=== PATIENT | male | born 1965 | race Caucasian/White ===

== ENCOUNTER 2018-03-20 16:23 | Observation (INO) | payer OTHER ==
[2018-03-20] MEDS ORDERED: ONDANSETRON 4 MG/2 ML VIAL IVP ONE (16:48)
[2018-03-20] MEDS ORDERED: fentaNYL 100 MCG/2 ML INJ IVP ONE (16:48)
[2018-03-20] MEDS ORDERED: NS 1,000 ML IV ONE ×2 (16:48→18:29)
--- NOTE | 2018-03-20 16:51 | EDPHY ---
H & P Stated Complaint: kidney stones Time Seen by Provider: 03/20/18 16:39 HPI/ROS: CHIEF COMPLAINT: Right flank pain, vomiting HISTORY OF PRESENT ILLNESS: 52-year-old male with history of kidney stones presents with right flank pain and vomiting. Onset of moderate right flank pain yesterday. The pain waxes and waning and currently is severe, 9/10. Associated with multiple episodes of vomiting and inability to tolerate oral fluids. Gross hematuria started yesterday evening, now with urinary hesitancy and dribbling urination. Chills last evening, no known fever. REVIEW OF SYSTEMS: complete 10 point ROS reviewed and is negative except for the noted elements in the HPI - Personal History Current Tetanus/Diphtheria Vaccine: Yes - Medical/Surgical History Hx Asthma: No Hx Chronic Respiratory Disease: No Hx Diabetes: No Hx Cardiac Disease: No Hx Renal Disease: No Hx Cirrhosis: No Hx Alcoholism: No Other PMH: kidney stones, CAD, diabetes, hypertension, hyperlipidemia - Social History Smoking Status: Never smoked Alcohol Use: Sober Drug Use: None Additional Social History: [place] - Physical Exam Exam: General Appearance: Alert, pleasant Eyes: Pupils equal and round, no conjunctival pallor ENT, Mouth: Mucous membranes moist Neck: Normal inspection Respiratory: Lungs are clear to auscultation Cardiovascular: Regular rate and rhythm Gastrointestinal: Abdomen is soft and nontender Back: No CVA tenderness Neurological: A&O, nonfocal, normal gait Skin: Warm and dry Extremities: Normal inspection Psychiatric: Mood and affect normal Constitutional: Initial Vital Signs Temperature (C) 37.1 C 03/20/18 16:31 Heart Rate 84 03/20/18 16:31 Respiratory Rate 18 03/20/18 16:31 Blood Pressure 98/60 L 03/20/18 16:31 O2 Sat (%) 92 03/20/18 16:31 O2 Delivery Mode Room Air Allergies/Adverse Reactions: Cephalosporins Allergy (Verified 03/20/18 16:35) iodine Allergy (Verified 03/20/18 16:35) Medical Decision Making - Diagnostics Imaging Results: Imaging Impressions Abdomen/Pelvis CT 03/20/18 16:48 Impression: 1. Bilateral nephrolithiasis. 2. Dominant partially obstructive calculus right renal pelvis measuring 12 x 7 x 15 mm as well as partially obstructing calculus distal right ureter at the level of the SI joints measuring 4 mm. 3. Fibrotic band or band of consolidation right lower lobe. 4. Cirrhosis suspected with prominence of the left lobe liver. 5. Moderate splenomegaly. 6. Degenerative disk disease mid to lower lumbar spine with spinal and neuroforaminal stenoses. Findings discussed with Ml Reno M.D. at 17:49 hour, 03/20/2018. Attention: This CT examination is specifically designed to evaluate patients who are clinically suspected of having acute obstructive uropathy. This examination does not use radiographic contrast, and as such, provides only a limited evaluation of the abdomen, pelvis and retroperitoneum. If there is further clinical suspicion for pathological conditions other than obstructive uropathy, a complete CT evaluation of the abdomen and pelvis utilizing intravenous, oral, and rectal contrast should be considered. Imaging: Discussed imaging studies w/ scallop raker Radiologist ED Course/Re-evaluation: This patient presents with severe right flank pain, consistent with renal colic. Bladder scan: No urine in the urinary bladder. An IV was established and IV normal saline 1 L, fentanyl 100 mcg and Zofran IV given. CT scan results discussed with the patient. He is currently feeling much better. Toradol 15 mg IV given. Urinalysis still pending. 7:30 p.m.-urinalysis reveals UTI. The patient is nontoxic-appearing and does not meet SIRS criteria. Urine/blood cultures sent and Levaquin 750 mg IV given. Hospitalist service was consulted for admission. Dr. Ambriz was consulted and requests IR nephrostomy tube. d/w Dr. Levi, who reviewed the CT scan; no indication for nephrostomy tube this evening, will reassess the patient in the morning. - Data Points Laboratory Results: Laboratory Results 03/20/18 17:00 03/20/18 17:00 03/20/18 03/20/18 03/20/18 18:40 17:00 17:00 WBC 9.82 10^3/uL H 10^3/uL (3.80-9.50) RBC 4.27 10^6/uL L 10^6/uL (4.40-6.38) Hgb 13.6 g/dL L g/dL (13.7-17.5) Hct 38.4 % L % (40.0-51.0) MCV 89.9 fL fL (81.5-99.8) MCH 31.9 pg pg (27.9-34.1) MCHC 35.4 g/dL g/dL (32.4-36.7) RDW 13.2 % % (11.5-15.2) Plt Count 62 10^3/uL L 10^3/uL (150-400) MPV 11.6 fL fL (8.7-11.7) Neut % (Auto) 89.6 % H % (39.3-74.2) Lymph % (Auto) 4.4 % L % (15.0-45.0) [place] % (Auto) 5.5 % % (4.5-13.0) Eos % (Auto) 0.0 % L % (0.6-7.6) Baso % (Auto) 0.2 % L % (0.3-1.7) Nucleat RBC Rel Count 0.0 % % (0.0-0.2) Absolute Neuts (auto) 8.80 10^3/uL H 10^3/uL (1.70-6.50) Absolute Lymphs (auto) 0.43 10^3/uL L 10^3/uL (1.00-3.00) Absolute Monos (auto) 0.54 10^3/uL 10^3/uL (0.30-0.80) Absolute Eos (auto) 0.00 10^3/uL L 10^3/uL (0.03-0.40) Absolute Basos (auto) 0.02 10^3/uL 10^3/uL (0.02-0.10) Absolute Nucleated RBC 0.00 10^3/uL 10^3/uL (0-0.01) Immature Gran % 0.3 % % (0.0-1.1) Immature Gran # 0.03 10^3/uL 10^3/uL (0.00-0.10) RBC/WBC/PLT Morphology TNP Platelet Estimate TNP Sodium 131 mEq/L L mEq/L (135-145) Potassium 4.0 mEq/L mEq/L (3.5-5.2) Chloride 100 mEq/L mEq/L (97-110) Carbon Dioxide 23 mEq/l mEq/l (22-31) Anion Gap 8 mEq/L mEq/L (6-14) BUN 30 mg/dL H mg/dL (7-23) Creatinine 0.8 mg/dL mg/dL (0.7-1.3) Estimated GFR > 60 Glucose 262 mg/dL H mg/dL (70-100) Calcium 8.2 mg/dL L mg/dL (8.5-10.4) Urine Color LATANYA Urine Appearance MODERATELY TURBID Urine pH 5.0 (5.0-7.5) Ur Specific [place] 1.026 (1.002-1.030) Urine Protein 2+ H (NEGATIVE) Urine Ketones NEGATIVE (NEGATIVE) Urine Blood 3+ H (NEGATIVE) Urine Nitrate NEGATIVE (NEGATIVE) Urine Bilirubin NEGATIVE (NEGATIVE) Urine Urobilinogen NEGATIVE EU EU (0.2-1.0) Ur Leukocyte Esterase 1+ H (NEGATIVE) Urine RBC 50-182 /hpf H /hpf (0-3) Urine WBC 50-182 /hpf H /hpf (0-3) Ur Epithelial Cells TRACE /lpf /lpf (NONE-1+) Urine Mucus 3+ /lpf H /lpf (NONE-1+) Urine Glucose 1+ H (NEGATIVE) Medications Given: Levofloxacin/Dextrose (Levaquin 750 Mg (Premix)) 150 mls @ 100 mls/hr IV EDNOW ONE PRN Reason: Protocol Stop: 03/20/18 20:54 Last Admin: 03/20/18 19:35 Dose: 150 mls Discontinued Medications Fentanyl (Sublimaze) 100 mcg IVP EDNOW ONE Stop: 03/20/18 16:49 Last Admin: 03/20/18 17:07 Dose: 100 mcg Sodium Chloride (Ns) 1,000 mls @ 0 mls/hr IV EDNOW ONE; Wide Open PRN Reason: Protocol Stop: 03/20/18 16:49 Last Admin: 03/20/18 17:07 Dose: 1,000 mls Sodium Chloride (Ns) 1,000 mls @ 0 mls/hr IV ONCE ONE; Wide Open PRN Reason: Protocol Stop: 03/20/18 18:30 Last Admin: 03/20/18 18:40 Dose: 1,000 mls Ketorolac Tromethamine (Toradol) 15 mg IVP EDNOW ONE Stop: 03/20/18 18:24 Last Admin: 03/20/18 18:39 Dose: 15 mg Ondansetron HCl (Zofran) 4 mg IVP EDNOW ONE Stop: 03/20/18 16:49 Last Admin: 03/20/18 17:07 Dose: 4 mg Ondansetron HCl (Zofran Odt 4 Mg Prepack#2) 1 btl TAKEHOME EDNOW ONE Stop: 03/20/18 18:31 Last Admin: 03/20/18 18:39 Dose: 1 btl Oxycodone/Acetaminophen (Percocet 5/325mg Prepack#4) 1 btl TAKEHOME EDNOW ONE Stop: 03/20/18 18:31 Last Admin: 03/20/18 18:39 Dose: 1 btl Departure - Departure Disposition: Home, Routine, Self-Care Clinical Impression: Ureteral calculus, right Urinary tract infection Qualifiers: Urinary tract infection type: acute cystitis Hematuria presence: with hematuria Qualified Code(s): N30.01 - Acute cystitis with hematuria Condition: Fair
[2018-03-20 17:28] LABS: PLATELET COUNT 62 10^3/uL (150-400)
[2018-03-20] MEDS ORDERED: KETOROLAC 15 MG/1 ML SDV IVP ONE (18:23)
[2018-03-20] MEDS: OXYCODONE/APAP 5/325MG PREPACK#4 BTL TAKEHOME ONE ×2 (18:39→21:11)
[2018-03-20] MEDS: ONDANSETRON 4MG PREPACK#2 BTL TAKEHOME ONE ×2 (18:39→21:11)
[2018-03-20] MEDS ORDERED: ACETAMINOPHEN 325 MG TAB PO PRN (19:45)
[2018-03-20] MEDS ORDERED: HYDROmorphONE/DILAUDID 1 MG/ML INJ IVP PRN (19:45)
[2018-03-20] MEDS ORDERED: ONDANSETRON 4 MG/2 ML VIAL IVP PRN (19:45)
[2018-03-20] MEDS ORDERED: ONDANSETRON DISINTEGRATING 4 MG TAB PO PRN (19:45)
--- NOTE | 2018-03-20 21:03 | PDGENHP ---
History and Physical - Chief Complaint R Flank Pain, vomiting, Hematuria - History of Present Illness Jose D Short is a 52 yo M with a PMHx of CAD, DM, HTN, HLD, Nephrolithiasis who presents to [facility] for R flank pain, vomiting, and hematuria. He reports that symptoms were acute onset yesterday evening. Pain was located in R flank, 7/10 , with no radiation, sharp in quality, worse with movement. He then started having profuse vomiting with nausea, approximately 18 episodes. He also experienced chills and rigors as well as hematuria. He denies any fevers, d/c, chest pain, SOB, LOC, edema, palpitations. History Information - Allergies/Home Medication List Allergies/Adverse Reactions: Cephalosporins Allergy (Verified 03/20/18 16:35) iodine Allergy (Verified 03/20/18 16:35) Home Medications: Aspirin EC [Aspirin EC 81 mg (*)] 81 mg PO DAILY 03/20/18 [Last Taken 03/20/18] Cholecalciferol Vit D3 [Vitamin D3 (*)] 1,000 units PO DAILY 03/20/18 [Last Taken 03/14/18] Ezetimibe/Simvastatin [Vytorin 10-20 mg Tablet] 1 each PO HS 03/20/18 [Last Taken 03/18/18] Levothyroxine [Synthroid 200 mcg (*)] 200 mcg PO DAILY06 03/20/18 [Last Taken ] Metoprolol Tartrate [Lopressor 50 mg (*)] 50 mg PO DAILY 03/20/18 [Last Taken ] Multivitamins [Multivitamin (*)] 1 each PO DAILY 03/20/18 [Last Taken 03/18/18] Olmesartan Medoxomil [Benicar 20 mg (*)] 20 mg PO HS 03/20/18 [Last Taken ] Saxagliptin HCl/Metformin HCl [Kombiglyze Xr 2.5-1,000 Mg Tab] 1 each PO BID [Last Taken 03/20/18] oxyCODONE/APAP 5/325 [Percocet 5/325 (*)] 1 tab PO Q4H PRN 03/20/18 [Last Taken 03/17/18] I have personally reviewed and updated: family history, medical history, social history, surgical history - Past Medical History coronary artery disease, diabetes type 2, hypertension, hyperlipidemia - Surgical History Reports: no pertinent surgical hx - Family History Positive for: non-pertinent - Social History Smoking Status: Never smoked Alcohol Use: Sober Drug Use: None Review of Systems Review of Systems: ROS: 10pt was reviewed & negative except for what was stated in HPI & below Physical Exam Physical Exam: Temp Pulse Resp BP Pulse Ox 36.6 C 74 16 101/50 L 97 03/20/18 19:37 03/20/18 19:37 03/20/18 19:37 03/20/18 19:37 03/20/18 19:37 Constitutional: uncomfortable Eyes: PERRL Ears, Nose, Mouth, Throat: moist mucous membranes Cardiovascular: regular rate and rhythym Respiratory: no respiratory distress Gastrointestinal: soft, non-tender abdomen Genitourinary: no bladder fullness, no bladder tenderness Skin: warm Musculoskeletal: full muscle strength Neurologic: AAOx3 Psychiatric: interacting appropriately Lab Data & Imaging Review 03/20/18 17:00 03/20/18 17:00 WBC 9.82 10^3/uL (3.80-9.50) H 03/20/18 17:00 RBC 4.27 10^6/uL (4.40-6.38) L 03/20/18 17:00 Hgb 13.6 g/dL (13.7-17.5) L 03/20/18 17:00 Hct 38.4 % (40.0-51.0) L 03/20/18 17:00 MCV 89.9 fL (81.5-99.8) 03/20/18 17:00 MCH 31.9 pg (27.9-34.1) 03/20/18 17:00 MCHC 35.4 g/dL (32.4-36.7) 03/20/18 17:00 RDW 13.2 % (11.5-15.2) 03/20/18 17:00 Plt Count 62 10^3/uL (150-400) L 03/20/18 17:00 MPV 11.6 fL (8.7-11.7) 03/20/18 17:00 Neut % (Auto) 89.6 % (39.3-74.2) H 03/20/18 17:00 Lymph % (Auto) 4.4 % (15.0-45.0) L 03/20/18 17:00 [place] % (Auto) 5.5 % (4.5-13.0) 03/20/18 17:00 Eos % (Auto) 0.0 % (0.6-7.6) L 03/20/18 17:00 Baso % (Auto) 0.2 % (0.3-1.7) L 03/20/18 17:00 Nucleat RBC Rel Count 0.0 % (0.0-0.2) 03/20/18 17:00 Absolute Neuts (auto) 8.80 10^3/uL (1.70-6.50) H 03/20/18 17:00 Absolute Lymphs (auto) 0.43 10^3/uL (1.00-3.00) L 03/20/18 17:00 Absolute Monos (auto) 0.54 10^3/uL (0.30-0.80) 03/20/18 17:00 Absolute Eos (auto) 0.00 10^3/uL (0.03-0.40) L 03/20/18 17:00 Absolute Basos (auto) 0.02 10^3/uL (0.02-0.10) 03/20/18 17:00 Absolute Nucleated RBC 0.00 10^3/uL (0-0.01) 03/20/18 17:00 Immature Gran % 0.3 % (0.0-1.1) 03/20/18 17:00 Immature Gran # 0.03 10^3/uL (0.00-0.10) 03/20/18 17:00 RBC/WBC/PLT Morphology TNP 03/20/18 17:00 Platelet Estimate TNP 03/20/18 17:00 VBG Lactic Acid 1.9 mmol/L (0.7-2.1) 03/20/18 19:50 Sodium 131 mEq/L (135-145) L 03/20/18 17:00 Potassium 4.0 mEq/L (3.5-5.2) 03/20/18 17:00 Chloride 100 mEq/L (97-110) 03/20/18 17:00 Carbon Dioxide 23 mEq/l (22-31) 03/20/18 17:00 Anion Gap 8 mEq/L (6-14) 03/20/18 17:00 BUN 30 mg/dL (7-23) H 03/20/18 17:00 Creatinine 0.8 mg/dL (0.7-1.3) 03/20/18 17:00 Estimated GFR > 60 03/20/18 17:00 Glucose 262 mg/dL (70-100) H 03/20/18 17:00 Calcium 8.2 mg/dL (8.5-10.4) L 03/20/18 17:00 Urine Color LATANYA 03/20/18 18:40 Urine Appearance MODERATELY TURBID 03/20/18 18:40 Urine pH 5.0 (5.0-7.5) 03/20/18 18:40 Ur Specific [place] 1.026 (1.002-1.030) 03/20/18 18:40 Urine Protein 2+ (NEGATIVE) H 03/20/18 18:40 Urine Ketones NEGATIVE (NEGATIVE) 03/20/18 18:40 Urine Blood 3+ (NEGATIVE) H 03/20/18 18:40 Urine Nitrate NEGATIVE (NEGATIVE) 03/20/18 18:40 Urine Bilirubin NEGATIVE (NEGATIVE) 03/20/18 18:40 Urine Urobilinogen NEGATIVE EU (0.2-1.0) 03/20/18 18:40 Ur Leukocyte Esterase 1+ (NEGATIVE) H 03/20/18 18:40 Urine RBC 50-182 /hpf (0-3) H 03/20/18 18:40 Urine WBC 50-182 /hpf (0-3) H 03/20/18 18:40 Ur Epithelial Cells TRACE /lpf (NONE-1+) 03/20/18 18:40 Urine Mucus 3+ /lpf (NONE-1+) H 03/20/18 18:40 Urine Glucose 1+ (NEGATIVE) H 03/20/18 18:40 Assessment & Plan Assessment: Obstructing Nephrolithiasis (Acute) - Acute onset R flank pain yesterday, hematuria - CT A/P on admission shows dominant partially obstructive calculus R renal pelvis [id number] mm as well as partially obstructing calculus distal R ureter at level of SI joint measuring 4 mm - ED discussed case with IR and Urology, no plan for nephrostomy tube tonight, urology to see in the AM - Will treat with IVF, Pain control - Tx of UTI as below - NPO after midnight Urinary tract infection (Acute) - In setting of nephrolithiasis as above - UA on admission shows +1 LE, 50-182 WBC, 3+ Mucus - Does not meet SIRS criteria with no tachycardia, leukocytosis, tachypnea, fever - S/p Levaquin in ED given hx of Cephalosporin allergy, will continue for now - Blood and urine cx pending, f/u results Hyponatremia - Na 131 on admission, in setting of profuse vomiting overnight - Will continue IVF overnight - Repeat BMP in the AM T2DM - Elevated BG 262 on admission - Will hold home anti-hyperglycemics - Order SSI as IP HTN - Continue home BP meds when med rec complete Hypothyroidism - Continue home thyroid replacement medications when med rec complete Thrombocytopenia - Platelet count 62 on admission - Patient reports this is a chronic issue for >20 years - Splenomegaly seen on CT scan - Continue to monitor FEN: NPO after midnight DVT PPx: SubQ Heparin Code: FULL Dispo: Admit to Observation
[2018-03-20] MEDS ORDERED: D50W 25 GM/50 ML VIAL IVP PRN (21:11)
[2018-03-20] MEDS: HEPARIN 5,000 UNIT/0.5 ML INJ SC SCH (21:52)
[2018-03-21] MEDS: HEPARIN 5,000 UNIT/0.5 ML INJ SC SCH ×3 (00:05→20:19)
--- NOTE | 2018-03-21 00:30 | GCON ---
DATE OF CONSULTATION: 03/20/2018 REFERRING PHYSICIAN: Magen Mccurdy DO REASON FOR CONSULTATION: Renal stone. HISTORY OF PRESENT ILLNESS: The patient is a 52-year-old gentleman with history of recurrent renal s tones. He is visiting from [place]. He was supposed to catch a flight yesterday, but due to fla nk pain, fevers, and chills, he came to the emergency department today for evaluation. He has a hist ory of recurrent stones. He is followed by a urologist in [place]. He plans on getting all his followup care in [place]. He has been having intermittent left flank pain, fevers, and chills fo r the last few days, which have been progressing and CT scan is noted to have a 15 x 12 mm obstructin g ureteropelvic junction stone. He has other stones in both kidneys. He also has a 4 mm distal ston e on the right. He is also diagnosed with liver changes concerning for cirrhosis and also consolidat ion in his right lower lobe, which could also be the source of his fevers. Tonight he has been havin g right flank pain, vomiting, emesis, gross hematuria. His symptoms significantly worsened yesterday . His pain was over 8/10, mainly in the right flank. He said he had multiple bouts of emesis. He d enies any chest pain, shortness of breath. He does have a history of CPAP and has sleep apnea. ALLERGIES: To cephalosporins, and allergy to iodine. HOME MEDICATIONS: Include aspirin, which I have asked him to stop until he gets definitive managemen t of the stone, vitamin D3, Vytorin, Synthroid, Lopressor, Benicar, and Percocet. PHYSICAL EXAMINATION: GENERAL: He is in no apparent distress. LUNGS: Clear. HEART: Regular. BA CK: He had some right flank tenderness. ABDOMEN: Soft, nontender, nondistended. GENITOURINARY: N ormal male genitalia. LABS: White count 9.82, hematocrit 38.4, platelets . His creatinine was 0.8. Urinalysis was positive nitrites and leukocytes. ASSESSMENT/PLAN: Patient with fevers, chills, nausea, vomiting, and infected urine, with a large dis adarsh ureteral stone and a proximal ureteral stone. Due to large size of the stone and likely need for percutaneous nephrostolithotomy in the future, recommend right percutaneous nephrostomy tube placeme nt per Interventional Radiology. I did discuss the risks and benefits of this procedure. We also di scussed the possibility of stent placement, but due to the large size of his kidney stones and his ne ed for future percutaneous nephrostolithotomy, he would be best served by percutaneous nephrostomy tu be to drain his infected urine. He understands he can travel with the tube in place. We discussed h is future need for stone treatment; also, the significant risk of having obstructing stone that has n ot drained. He understands these risks, he wishes to proceed with percutaneous nephrostomy drainage with Interventional Radiology in the morning. He plans to leave back to [place] as soon as possi ble. He is already on appropriate antibiotics. /[id number]/MODL
[2018-03-21] MEDS: HYDROCODONE/APAP 5/325 TAB PO PRN ×4 (03:34→17:38)
[2018-03-21 05:17] LABS: PLATELET COUNT 49 10^3/uL (150-400)
[2018-03-21] MEDS: NS 1,000 ML IV SCH (06:12)
[2018-03-21] MEDS: INSULIN LISPRO 100 UNIT/ML SC SCH ×3 (09:31→17:35)
--- NOTE | 2018-03-21 10:56 | ASMTCMCOM ---
CM Note CM Note Notes: Chart reviewed. Patient admitted via ED for acute onset of flank pain and hematuria. He lives in [place] and would like to follow up at home. He is to have a percutaneous nephrostomy tube placed prior to discharge. No other needs identified at this time. CM available should other needs arise. Plan: Likely to dc independently when medically cleared for discharge to home. Date Signed: 03/21/2018 10:55 AM Electronically Signed By:Mirna Schmitt RN
--- NOTE | 2018-03-21 16:53 | SOAPPROG ---
[facility] Progress Note Assessment/Plan: Assessment: Ureteral calculus, right Acute Consider ureteroscopy 03/22/2018 for large stone, may only be able to place stent and arrange for ESWL Urinary tract infection Acute Plan: as noted, plan ureteroscopy 03/22/2018 03/21/18 17:14 Subjective: + hx of stones, rt side pain severe and agrees with planned ureteroscopy Objective: Vital Signs Temp Pulse Resp BP Pulse Ox 36.9 C 75 14 110/67 94 03/21/18 15:38 03/21/18 15:38 03/21/18 15:38 03/21/18 15:38 03/21/18 15:38 Laboratory Results 03/21/18 04:55 03/21/18 04:55 03/20/18 03/21/18 03/22/18 05:59 05:59 05:59 Intake Total 1150 Output Total 500 Balance 1150 -500 reviewed CAT scan in detail Physical Exam - Physical Exam General Appearance: alert Neck: full range of motion Respiratory: No respiratory distress Cardiac/Chest: regular rate, rhythm Extremities: No calf tenderness, No Dulce's sign Neuro/Psych: alert, oriented x 3 ICD10 Worksheet Patient Problems: Problems Problem Status Onset Ureteral calculus, right Acute Urinary tract infection Acute
--- NOTE | 2018-03-21 16:57 | HOSPPROG ---
Hospitalist Progress Note Assessment/Plan: The patient is a 52-year-old male with PMH of kidney stones who was admitted for obstructing nephrolithiasis. This patient is new to me. Reviewed patient's chart/records for this visit. ASSESSMENT/PLAN: Acute partially obstructing nephrolithiasis Right flank pain, 2/2 above Acute UTI, 2/2 above Leukocytosis, 2/2 above Thrombocytopenia, likely chronic Anemia DM2 Obesity Hypothyroid HTN -Discussed w/ Urologist Dr. Allred -- Nephrostomy tube placement was canceled and Dr. Hope will see patient today and then take pt to OR tomorrow for cystoscopy w/ laser lithotripsy and stone removal -Continue IV Abx. -Pt may have a diet today. -prn analgesics, antiemetics. -Resume home meds, except for DM meds and aspirin. -Check AM labs. -If pt bleeds from surgery, may need plt transfusion. VTE prophylaxis: DC heparin as pt is higher bleeding risk w/ low platelets and aspirin use. Code Status: Full code Status: inpatient for greater than 2 midnight stay. Disposition: Med surge with discharge anticipated in the next 1-2 days. ____ SUBJECTIVE: Today patient continues to have right flank pain. OBJECTIVE: Physical Exam: General: The patient is an obese male who is alert and in mild acute distress. HEENT: normocephalic, extraocular movements intact, conjunctivae clear. Mucous membranes moist. Neck: trachea midline, no visible masses. Abd: soft and mildly distended. Musculoskeletal: Normal muscle tone/bulk. Neuro: cranial nerves II XII grossly intact. Intact gross motor and sensory function. Psych: Appropriate mood and appropriate affect. Skin: No pallor. No petechiae. Heme/lymph: No peripheral edema at bilateral lower extremities. : No suprapubic tenderness. + right-sided costovertebral tenderness. Labs/Imaging/Other Tests: Personally reviewed/interpreted. CT abd/pelvis w/o contrast: Impression: 1. Bilateral nephrolithiasis. 2. Dominant partially obstructive calculus right renal pelvis measuring 12 x 7 x 15 mm as well as partially obstructing calculus distal right ureter at the level of the SI joints measuring 4 mm. 3. Fibrotic band or band of consolidation right lower lobe. 4. Cirrhosis suspected with prominence of the left lobe liver. 5. Moderate splenomegaly. 6. Degenerative disk disease mid to lower lumbar spine with spinal and neuroforaminal stenoses. Objective: Vital Signs Temp Pulse Resp BP Pulse Ox 36.9 C 75 14 110/67 94 03/21/18 15:38 03/21/18 15:38 03/21/18 15:38 03/21/18 15:38 03/21/18 15:38 Laboratory Results 03/21/18 04:55 03/21/18 04:55 03/20/18 03/21/18 03/22/18 05:59 05:59 05:59 Intake Total 1150 Output Total 500 Balance 1150 -500 - Time Spent With Patient Time Spent with Patient: greater than 35 minutes Time Spent with Patient: Greater than 35 minutes spent on this patients care, greater than 50% of time spent counseling, educating, and coordinating care regarding the above mentioned plan. - Pending Discharge Pending Discharge Within 48 Hours: Yes Pending Discharge Date: 03/23/18 Pending Discharge Time: 11:00 ICD10 Worksheet Patient Problems: Problems Problem Status Onset Ureteral calculus, right Acute Urinary tract infection Acute
[2018-03-21] MEDS ORDERED: KETOROLAC 15 MG/1 ML SDV IVP PRN (17:50)
[2018-03-21] MEDS: OLMESARTAN MEDOXOMIL 20 MG TAB PO SCH (21:39)
[2018-03-21] MEDS: ATORVASTATIN CALCIUM 10 MG TAB PO SCH (21:40)
[2018-03-21] MEDS: EZETIMIBE 10 MG TAB PO SCH (21:40)
[2018-03-22] MEDS: NS 1,000 ML IV SCH ×2 (01:12→09:14)
[2018-03-22] MEDS: LEVOTHYROXINE 200 MCG TAB PO SCH (04:40)
[2018-03-22] MEDS: INSULIN LISPRO 100 UNIT/ML SC SCH ×3 (09:12→18:24)
[2018-03-22] MEDS: HYDROCODONE/APAP 5/325 TAB PO PRN ×3 (09:13→19:40)
[2018-03-22] MEDS: METOPROLOL TARTRATE 50 MG TAB PO SCH (09:27)
[2018-03-22] MEDS: CHOLECALCIFEROL VIT D3 1,000 UNITS TAB PO SCH (09:31)
[2018-03-22] MEDS: MULTIVITAMINS 1 EACH TAB PO SCH (09:32)
--- NOTE | 2018-03-22 13:20 | PDHPUP ---
History & Physical Update H&P update statement: This history and physical update is based on an assessment of the patient which was completed after admission or registration (within 24 hours), but prior to the surgery/procedure. H&P update: H&P reviewed & patient examined, no change in patient's condition since H&P completed
[2018-03-22] MEDS ORDERED: LR 1,000 ML IV ONE (14:42)
[2018-03-22] MEDS ORDERED: LIDOCAINE 2% JELLY 20 ML (UROJECT) ONE (15:05)
[2018-03-22] MEDS ORDERED: IOPAMIDOL (ISOVUE-M 300) 15 ML VIAL ONE ×2 (15:06)
[2018-03-22] MEDS ORDERED: MIDAZOLAM 2 MG/2 ML VIAL IVP ONE (15:08)
--- NOTE | 2018-03-22 15:08 | PDANEPAE ---
ANE History of Present Illness 52 yo for ureteroscopy ANE Past Medical History - Cardiovascular History Hx Hypertension: Yes Hx Arrhythmias: No Hx Chest Pain: No Hx Coronary Artery / Peripheral Vascular Disease: Yes Hx CHF / Valvular Disease: No Hx Palpitations: No Cardiovascular History Comment: s/p PTCA 2006 - Pulmonary History Hx COPD: No Hx Asthma/Reactive Airway Disease: No Hx Recent Upper Respiratory Infection: No Hx Oxygen in Use at Home: No Hx Sleep Apnea: Yes Sleep Apnea Screening Result - Last Documented: Positive - Endocrine History Hx Diabetes: No - Chronic Pain History Chronic Pain: Yes ANE Review of Systems Review of Systems: - Exercise capacity METS (RN): 4 METS ANE Patient History - Allergies Allergies/Adverse Reactions: Cephalosporins Allergy (Verified 03/20/18 16:35) iodine Allergy (Verified 03/20/18 16:35) - Home Medications Home medications: home medication list seen and reviewed Home Medications: Aspirin EC [Aspirin EC 81 mg (*)] 81 mg PO DAILY 03/20/18 [Last Taken 03/20/18] Cholecalciferol Vit D3 [Vitamin D3 (*)] 1,000 units PO DAILY 03/20/18 [Last Taken 03/14/18] Ezetimibe/Simvastatin [Vytorin 10-20 mg Tablet] 1 each PO HS 03/20/18 [Last Taken 03/18/18] Levothyroxine [Synthroid 200 mcg (*)] 200 mcg PO DAILY06 03/20/18 [Last Taken ] Metoprolol Tartrate [Lopressor 50 mg (*)] 50 mg PO DAILY 03/20/18 [Last Taken ] Multivitamins [Multivitamin (*)] 1 each PO DAILY 03/20/18 [Last Taken 03/18/18] Olmesartan Medoxomil [Benicar 20 mg (*)] 20 mg PO HS 03/20/18 [Last Taken ] Saxagliptin HCl/Metformin HCl [Kombiglyze Xr 2.5-1,000 Mg Tab] 1 each PO BID [Last Taken 03/20/18] oxyCODONE/APAP 5/325 [Percocet 5/325 (*)] 1 tab PO Q4H PRN 03/20/18 [Last Taken 03/17/18] - NPO status NPO Status: no food or drink >8 hours NPO Since - Liquids (Date): 03/22/18 NPO Since - Liquids (Time): 00:00 NPO Since - Solids (Date): 03/22/18 NPO Since - Solids (Time): 00:00 - Smoking Hx Smoking Status: Never smoked - Alcohol Use Alcohol Use: Sober ANE Labs/Vital Signs - Labs Result Diagrams: 03/21/18 04:55 03/21/18 04:55 - Vital Signs Blood Pressure: 112/72 Heart Rate: 66 Respiratory Rate: 18 O2 Sat (%): 95 Height: 6 ft 3 in Weight: 138.346 kg ANE Physical Exam - Airway Neck exam: FROM Mallampati Score: Class 2 Mouth exam: normal dental/mouth exam - Pulmonary Pulmonary: no respiratory distress - Cardiovascular Cardiovascular: regular rate and rhythym - ASA Status ASA Status: III ANE Anesthesia Plan Anesthesia Plan: GA w LMA
[2018-03-22] MEDS ORDERED: PROPOFOL/EMULSION 500 MG/50 ML BOTTLE IV ONE (15:13)
[2018-03-22] MEDS ORDERED: fentaNYL 100 MCG/2 ML INJ ONE (15:13)
[2018-03-22] MEDS ORDERED: METOCLOPRAMIDE 10 MG/2 ML VIAL ONE (15:15)
[2018-03-22] MEDS ORDERED: ONDANSETRON 4 MG/2 ML VIAL ONE (15:16)
[2018-03-22] MEDS ORDERED: DEXAMETHASONE 4 MG/ML VIAL ONE (15:16)
[2018-03-22] MEDS ORDERED: PROPOFOL 200 MG/20 ML VIAL ONE (16:51)
[2018-03-22] MEDS ORDERED: NALOXONE HCL 0.4 MG/ML INJ IVP PRN (17:10)
[2018-03-22] MEDS ORDERED: ONDANSETRON 4 MG/2 ML VIAL IVP PRN (17:10)
[2018-03-22] MEDS ORDERED: fentaNYL 100 MCG/2 ML INJ IVP PRN (17:10)
--- NOTE | 2018-03-22 17:17 | POSTANESTH ---
Post Anesthetic Evaluation Cardiovascular Status: Normal, Stable Respiratory Status: Tx Decrease in SpO2 Level of Consciousness/Mental Status: Can Participate in Eval Pain Control: Adequate, Prn Tx Ordered Nausea/Vomiting Control: Adequate, Prn Tx Ordered Complications Possibly Related to Anesthesia: None Noted
--- NOTE | 2018-03-22 17:33 | POSTOPPROG ---
Post Op Note Date of Operation: 03/22/18 (dictated) Surgeon: Solis Hope Anesthesia: GET(General Endotracheal) Pre-op Diagnosis: rt ureterolithiasis and rt nephrolithiasis Procedure: ureteroscopic laser of ureteral stone and renal stones same side Inf/Abcess present in the surg proc area at time of surgery?: No EBL: Minimal Drains: Other (stent)
--- NOTE | 2018-03-22 18:51 | HOSPPROG ---
Hospitalist Progress Note Assessment/Plan: The patient is a 52-year-old male with PMH of kidney stones who was admitted for obstructing nephrolithiasis. ASSESSMENT/PLAN: Acute partially obstructing nephrolithiasis, s/p surgery Right flank pain, 2/2 above Acute UTI, 2/2 above Leukocytosis, 2/2 above Thrombocytopenia, likely chronic Anemia DM2 Obesity Hypothyroid HTN -Discussed w/ Urologist Dr. Hope -- who took pt for surgery today. -Continue IV Abx. -Pt may have a diet after surgery. -prn analgesics, antiemetics. -Check AM labs. -If pt bleeds from surgery, may need plt transfusion. VTE prophylaxis: DC heparin as pt is higher bleeding risk w/ low platelets and aspirin use. Code Status: Full code Status: inpatient for greater than 2 midnight stay. Disposition: [facility] with discharge anticipated in the next 1-2 days. ____ SUBJECTIVE: Saw pt after surgery. He feels ok. OBJECTIVE: Physical Exam: General: The patient is an obese male who is sleepy and in no acute distress. HEENT: normocephalic, extraocular movements intact, conjunctivae clear. Mucous membranes moist. Neck: trachea midline, no visible masses. Abd: soft and mildly distended. Musculoskeletal: Normal muscle tone/bulk. Neuro: cranial nerves II XII grossly intact. Intact gross motor and sensory function. Psych: Appropriate mood and appropriate affect. Skin: No pallor. No petechiae. Heme/lymph: No peripheral edema at bilateral lower extremities. Labs/Imaging/Other Tests: Personally reviewed/interpreted. CT abd/pelvis w/o contrast: Impression: 1. Bilateral nephrolithiasis. 2. Dominant partially obstructive calculus right renal pelvis measuring 12 x 7 x 15 mm as well as partially obstructing calculus distal right ureter at the level of the SI joints measuring 4 mm. 3. Fibrotic band or band of consolidation right lower lobe. 4. Cirrhosis suspected with prominence of the left lobe liver. 5. Moderate splenomegaly. 6. Degenerative disk disease mid to lower lumbar spine with spinal and neuroforaminal stenoses. Objective: Vital Signs Temp Pulse Resp BP Pulse Ox 36.5 C 71 16 120/71 98 03/22/18 17:57 03/22/18 17:57 03/22/18 17:57 03/22/18 17:57 03/22/18 17:57 Laboratory Results 03/21/18 04:55 03/21/18 04:55 03/21/18 03/22/18 03/23/18 05:59 05:59 05:59 Intake Total 1150 1550 1360 Output Total 2650 1125 Balance 1150 -1100 235 ICD10 Worksheet Patient Problems: Problems Problem Status Onset Ureteral calculus, right Acute Urinary tract infection Acute
--- NOTE | 2018-03-22 20:19 | GOP ---
DATE OF OPERATION: 03/22/2018 SURGEON: Solis Hope MD PREOPERATIVE DIAGNOSIS: Right ureteral lithiasis, right nephrolithiasis. POSTOPERATIVE DIAGNOSIS: Right ureteral lithiasis, right nephrolithiasis. PROCEDURE PERFORMED: Cystoscopy, retrograde ureteral pyelogram, placement of ureteral access sheath, laser lithotripsy of ureteral calculus and laser lithotripsy of nephrolithiasis. FINDINGS: DESCRIPTION OF PROCEDURE: The gentleman underwent general anesthesia, prepped and draped in normal s terile fashion dorsal lithotomy position. Bladder had no tumor, stones, foreign bodies, or diverticu la. The right ureteral orifice was cannulated, and it revealed that he had ureteral calculus in the proximal 3rd ureter and was able to pass the ureteral access sheath up to that stone and fragment it in multiple pieces and then went in, and he had 2 stones, 1 in the upper pole, and 1 in the midpole t o lower pole calyx, and each of those stones were fragmented, and then at the end of the procedure I placed a 4.7 multi-length stent that curled in the renal pelvis, curled in the bladder. A total of 4 174 joules were utilized. I used a 200 micron fiber at 8 bowden, 13 pulse per second, and total time was 30 minutes. At the end of the procedure, the stent was placed. The catheter was placed, irrigat ed clear, and will leave the catheter in overnight and remove it in the morning. Then have a KUB to address the stone burden. Grossly it appeared that all the stone fragments were microscopic and enma use of the size of the stone, stone burden and position, and the inflammatory reaction of the ureter, elected not to try to drag the fragments out. Discussed this with him postop. /[id number]/MODL
[2018-03-22] MEDS: OLMESARTAN MEDOXOMIL 20 MG TAB PO SCH (21:00)
[2018-03-22] MEDS: ATORVASTATIN CALCIUM 10 MG TAB PO SCH (21:00)
[2018-03-22] MEDS: EZETIMIBE 10 MG TAB PO SCH (21:01)
[2018-03-23] MEDS: LEVOTHYROXINE 200 MCG TAB PO SCH (04:53)
[2018-03-23 05:32] LABS: PLATELET COUNT 67 10^3/uL (150-400)
[2018-03-23] MEDS: HYDROCODONE/APAP 5/325 TAB PO PRN (06:45)
[2018-03-23] MEDS: INSULIN LISPRO 100 UNIT/ML SC SCH (07:43)
[2018-03-23] MEDS: MULTIVITAMINS 1 EACH TAB PO SCH (08:15)
[2018-03-23] MEDS: CHOLECALCIFEROL VIT D3 1,000 UNITS TAB PO SCH (08:15)
[2018-03-23] MEDS: METOPROLOL TARTRATE 50 MG TAB PO SCH (08:19)
[2018-03-23] MEDS: NS 1,000 ML IV SCH (11:22)
[2018-03-23 12:52] VITALS: BP 120/63
--- NOTE | 2018-03-23 13:18 | SOAPPROG ---
ADRIANA Progress Note Assessment/Plan: Assessment: Ureteral calculus, right Acute Consider ureteroscopy 03/22/2018 for large stone, may only be able to place stent and arrange for ESWL Urinary tract infection Acute Plan: DC and remove stent in one week 03/23/18 13:16 Subjective: dc pod 1, feeling well Objective: Vital Signs Temp Pulse Resp BP Pulse Ox 36.6 C 64 18 120/63 98 03/23/18 12:00 03/23/18 12:00 03/23/18 04:00 03/23/18 12:00 03/23/18 12:00 Laboratory Results 03/23/18 05:10 03/23/18 05:10 03/22/18 03/23/18 03/24/18 05:59 05:59 05:59 Intake Total 1550 1830 Output Total 2650 3325 950 Balance -1100 -1495 -950 Physical Exam - Physical Exam General Appearance: WD/WN Respiratory: No respiratory distress Cardiac/Chest: regular rate, rhythm Abdomen: soft Back: No CVA tenderness Skin: warm/dry Neuro/Psych: alert, oriented x 3 ICD10 Worksheet Patient Problems: Problems Problem Status Onset Ureteral calculus, right Acute Urinary tract infection Acute
--- NOTE | 2018-03-23 16:10 | ASDISCHSUM ---
Discharge Information Plan Status:Home with No Needs Medically Cleared to Leave: Discharge Date:03/23/2018 02:10 PM CM D/C Disposition: ADT D/C Disposition:Home, Routine, Self-Care Projected Discharge Date:03/23/2018 02:10 PM Transportation at D/C: Discharge Delay Reason: Follow-Up Date:03/23/2018 02:10 PM Discharge Slot: Final Diagnosis: Placement Information Patient Contact Information Contact Name:JASWANT Relationship: Address: Work Phone: City: [facility] Phone: State/[place] Code: Email: Financial Information Financial Class:HMO and PPO Plans Primary Plan Desc:[employer] Primary Plan Number:[id number] Secondary Plan Desc: Secondary Plan Number: Assessment Information LACE LACE Acuity / Level of Answers: No Care: Did the patient have an inpatient admission? Comorbidities - select Answers: Congestive heart failure all that apply Coronary Artery Disease Diabetes (uncontrolled or controlled) Other Notes: kidney stones # of Emergency department Answers: 1-2 visits in the last 6 months Score: 7 Date Signed: 03/23/2018 04:09 PM Electronically Signed By:LUIS Neal [facility] CM Progress Note CM Note CM Note Notes: Chart reviewed. Patient admitted via ED for acute onset of flank pain and hematuria. He lives in [place] and would like to follow up at home. He is to have a percutaneous nephrostomy tube placed prior to discharge. No other needs identified at this time. CM available should other needs arise. Plan: Likely to dc independently when medically cleared for discharge to home. Date Signed: 03/21/2018 10:55 AM Electronically Signed By:Mirna Schmitt RN Case Management Discharge Plan Note Case Management Discharge Discharge Order Complete? Answers: Yes Patient to Obtain Answers: via Family Medications Transportation Arranged Answers: Family/Friends Discharge Comments Notes: Pt discharged independently. No CM needs identified. Date Signed: 03/23/2018 04:08 PM Electronically Signed By:LUIS Neal Intervention Information
--- NOTE | 2018-03-23 19:22 | PDDCSUM ---
Discharge Summary Discharge Summary: Date of Admission: 03/20/2018 Date of Discharge: 03/23/2018 Discharge Diagnoses: Acute partially obstructing nephrolithiasis, s/p surgery w/ ureteral stent placement Right flank pain, 2/2 above Acute UTI, 2/2 above Leukocytosis, 2/2 above Thrombocytopenia, likely chronic Anemia DM2 Obesity Hypothyroid HTN Admission Diagnoses: Obstructing nephrolithiasis, acute Acute UTI Hyponatremia Type 2 diabetes mellitus Hypertension Hypothyroidism Thrombocytopenia Consultants: Urology-Dr. Solis Hope [facility] Course: The patient is a 52-year-old male with PMH nephrolithiasis who presented with acute right flank pain and hematuria. He was found to have a partially obstructing calculus in the right renal pelvis and in the distal right ureter. He was started on IV antibiotics empirically for mild pyuria. Urology was consulted and took the patient to surgery to undergo cystoscopy with laser lithotripsy, stone removal, and ureteral stent placement. The patient tolerated the procedure without complications. Following the procedure the patient was recommended to be discharged per Urology with instructions to follow in the office in 5 days for stent removal. Antibiotics were not continued , as mild pyuria was thought to be secondary to inflammation from stone rather than a bacterial infection. Physical Exam: Gen - alert, NAD. MSK: ambulatory. : +R flank tenderness, improved. Condition: Stable. Discharged to: Home. Pertinent tests/labs/imaging: KUB postop: 1. Double-J ureteral stent in good position on the right. 2. Nephrolithiasis on the right is once again noted. Left renal calculi seen on CT imaging are obscured by stool and gas. CT abd/pelv w/o contrast: 1. Bilateral nephrolithiasis. 2. Dominant partially obstructive calculus right renal pelvis measuring 12 x 7 x 15 mm as well as partially obstructing calculus distal right ureter at the level of the SI joints measuring 4 mm. 3. Fibrotic band or band of consolidation right lower lobe. 4. Cirrhosis suspected with prominence of the left lobe liver. 5. Moderate splenomegaly. 6. Degenerative disk disease mid to lower lumbar spine with spinal and neuroforaminal stenoses. Medications: Please see med rec form-- resumed home meds. Atorvastatin 10mg po QD. Acteminophen 325mg po q4h prn pain. Ibuprofen 600 mg TID prn pain. Special instructions: Return to ED for worsening can symptoms or any concerns. Follow up: Urologist-Dr. Solis Hope in 5 days. PCP as scheduled.
== END 2018-03-23 14:10 | disposition home or self-care (01) ==
LOC: F1N 21:23
PROVIDERS: ADMIT Internal Medicine; ATTEND Internal Medicine
PROC: BT1DYZZ Fluoroscopy of Right Kidney, Ureter and Bladder using Other Contrast (ICD-10-PCS; principal; 2018-03-22 15:15)
PROC: 0T768DZ Dilation of Right Ureter with Intraluminal Device, Via Natural or Artificial Opening Endoscopic (ICD-10-PCS; principal; 2018-03-22 15:15)
PROC: 0TF68ZZ Fragmentation in Right Ureter, Via Natural or Artificial Opening Endoscopic (ICD-10-PCS; principal; 2018-03-22 15:15)
PROC: 0TF38ZZ Fragmentation in Right Kidney Pelvis, Via Natural or Artificial Opening Endoscopic (ICD-10-PCS; principal; 2018-03-22 15:15)
DX: N20.1 Calculus of ureter (principal); N20.0 Calculus of kidney; N30.01 Acute cystitis with hematuria; E86.9 Volume depletion, unspecified; D72.829 Elevated white blood cell count, unspecified; D69.6 Thrombocytopenia, unspecified; D64.9 Anemia, unspecified; E87.1 Hypo-osmolality and hyponatremia; K76.9 Liver disease, unspecified; E11.9 Type 2 diabetes mellitus without complications; E66.9 Obesity, unspecified; E03.9 Hypothyroidism, unspecified; I10 Essential (primary) hypertension; M51.36 Other intervertebral disc degeneration, lumbar region; R16.1 Splenomegaly, not elsewhere classified; I25.10 Atherosclerotic heart disease of native coronary artery without angina pectoris; G47.33 Obstructive sleep apnea (adult) (pediatric); Z87.442 Personal history of urinary calculi; Z91.041 Radiographic dye allergy status
CPT/HCPCS: 52356; 74018; 74176; 76001; 96361; 96365; 96372; 96375; 96376; 99285; C1758; C1769; C1894; G0378; C2625; J1100; J1170; J1644; J1815; J1885; J1956; J2250; J2405; J2704; J2765; J3010; Q9967